=== PATIENT | male | born 1940 | race Caucasian/White ===

== ENCOUNTER 2017-03-12 21:56 | Inpatient (IN) | payer OTHER ==
[~2017-03-12] VITALS: Ht 182.9 cm; Wt 100.7 kg
[~2017-03-12 21:56] MED LIST: ALEVE220 M2 PO; ASTEPRO 0.15%30 ML BOTH NARES; ATARAX,VISTARIL25 MG PO; ATROVENT H200 INHALA IH; CENTRUM MULTIG80 MCG PO; DERMA-SMOOT118.28 ML TP; DESYREL100 MG PO; EYE ITCH RELIEF5 ML BOTH EYES; FLOMAX0.4 MG PO; FLONASE ALLERG9.9 ML BOTH NARES; KENALOG,ARISTOC80 G1 TP; LO-DOSE ASPIRIN81 M1 PO; PRESERVISION A1 EAC2 PO; PROSCAR5 MG PO; SYSTANE GEL EYE10 ML BOTH EYES; VITAMIN D31000 UNIT PO; XYZAL5 MG PO; ZOCOR20 MG PO; ZYRTEC10 M3 PO
[2017-03-13 12:45] VITALS: BP 114/70
[2017-03-13 15:54] VITALS: BP 113/55
[2017-03-13 20:20] VITALS: BP 100/54
[2017-03-14 00:09] VITALS: BP 112/54
[2017-03-14 04:25] VITALS: BP 102/55
[2017-03-14 05:38] LABS: HEMATOCRIT 36.2 % (38.0-50.0); MCV 91.9 FL (86-99)
[2017-03-14 06:03] LABS: ANION GAP 7 MEQ/L (2-14); CHLORIDE 107 MEQ/L (99-109); GFR ESTIMATE (CALCULATED) > 59 mL/min/; GLUCOSE 126 mg/dL (70-99); POTASSIUM 4.5 MEQ/L (3.7-5.4); SAMPLE HEMOLYSIS CHECK 0; SAMPLE ICTERIC CHECK 0; SAMPLE LIPEMIA CHECK 0; SODIUM 139 MEQ/L (136-147); UREA NITROGEN (BUN) 23 mg/dL (9-23)
[2017-03-14 08:11] VITALS: BP 117/57
[2017-03-14 11:47] VITALS: BP 107/52
[2017-03-14 15:53] VITALS: BP 123/59
[2017-03-14 20:17] VITALS: BP 113/56
[2017-03-15] VITALS: BP 115/54
[2017-03-15 04:30] VITALS: BP 127/60
[2017-03-15 06:30] LABS: HEMATOCRIT 34.8 % (38.0-50.0); MCV 92.3 FL (86-99)
[2017-03-15 08:16] VITALS: BP 120/58
[2017-03-15] MEDS ORDERED: BENADRYL25 MG PO (08:27)
[2017-03-15] MEDS ORDERED: TYLENOL REGULA325 MG PO (08:30)
[2017-03-15] MEDS ORDERED: BISACODYL5 MG PO (08:32)
[2017-03-15] MEDS ORDERED: ELIQUIS2.5 MG PO (08:34)
[2017-03-15] MEDS ORDERED: CELECOXIB200 MG PO (08:34)
[2017-03-15] MEDS ORDERED: OXYCODONE HCL5 MG PO (08:34)
[2017-03-15 12:00] VITALS: BP 120/60
== END 2017-03-15 14:30 | DRG 470 ==
LOC: ENRESERV 21:56 → 2SOUTH 03-13 06:27 → 3WEST 03-13 12:40
PROVIDERS: Orthopaedic Surgery
PROC: 0SRD0J9 Replacement of Left Knee Joint with Synthetic Substitute, Cemented, Open Approach (ICD-10-PCS; principal; 2017-03-13)
DX: M17.12 Unilateral primary osteoarthritis, left knee (principal); E78.5 Hyperlipidemia, unspecified; G47.33 Obstructive sleep apnea (adult) (pediatric); G47.00 Insomnia, unspecified; J30.9 Allergic rhinitis, unspecified; Z96.651 Presence of right artificial knee joint; E66.9 Obesity, unspecified; Z68.30 Body mass index [BMI] 30.0-30.9, adult; Z79.82 Long term (current) use of aspirin; Z82.49 Family history of ischemic heart disease and other diseases of the circulatory system
CPT/HCPCS: 80048; 85014; 85018; 94640; 99202; C1713; J0131; J0690; J1100; J1885; J2250; J2405; J2795; J7050; J7120; L1820